=== PATIENT | male | born 1960 | race Caucasian/White ===

== ENCOUNTER 2023-03-13 06:52 | Inpatient (IN) | payer MEDICAID, OTHER ==
[~2023-03-13] VITALS: Ht 188 cm; Wt 115.0 kg
[2023-03-13] MEDS ORDERED: ALBUTEROL SULF 2.5 MG/0.5ML(0.5%) NEB SOLN ONE (07:00)
[2023-03-13] MEDS ORDERED: methylPREDNISolone SOD SUCC 125 MG/2 ML VL IV ONE (07:00)
[2023-03-13] MEDS ORDERED: ALBUTEROL SULF 2.5 MG/0.5ML(0.5%) NEB SOLN HHN ONE (07:00)
[2023-03-13] MEDS ORDERED: IPRATROPIUM BROM 0.5 MG/2.5ML INH SOL ONE (07:00)
[2023-03-13] MEDS ORDERED: IPRATROPIUM BROM 0.5 MG/2.5ML INH SOL HHN ONE (07:00)
[2023-03-13 07:22] LABS: Hematocrit 47.8 % (41.0-53.0); Hemoglobin 15.4 g/dL (13.5-17.5); Mean Corpuscular Hemoglobin 29.2 pg (28.0-32.0); Mean Corpuscular Hgb Conc. 32.2 g/dL (32.0-36.0); Mean Corpuscular Volume 90.8 fL (80.0-100.0); Red Blood Cells 5.27 10^6/uL (4.5-5.90); Red Cell Distribution Width 14.9 % (11.8-14.3); White Blood Cell 18.8 10^3/uL (4.4-10.8)
[2023-03-13 07:24] LABS: Basophils % (manual) 0 (0.0-2.0); Blast Cells 0; Eosinophils % (manual) 0 (0-7); Metamyelocytes % 0; Myelocytes % 0; Promyelocytes % 0; Reactive Lymphocytes 0
[2023-03-13] MEDS ORDERED: NALOXONE HCL 1MG/ML 2ML SYRINGE IV ONE (07:30)
[2023-03-13 07:32] LABS: Chloride 104 mmol/L (98-107); Potassium 4.9 mmol/L (3.5-5.1); Sodium 135 mmol/L (136-145)
[2023-03-13 07:33] LABS: Anion Gap 12 (5-15); Calcium 8.8 mg/dL (8.5-10.1); Carbon Dioxide 19 mmol/L (20-30)
[2023-03-13 07:38] LABS: Blood Urea Nitrogen 25 mg/dL (9-23); Glucose 252 mg/dL (74-106)
[2023-03-13 07:40] VITALS: PULSE 114; RESP 26; O2SAT 91
[2023-03-13] MEDS ORDERED: cefTRIAXone 1GM/50ML D5W 50 ML IV ONE ×2 (07:45→08:00)
[2023-03-13 07:53] LABS: Lactic Acid w/Reflex 4.2 mmol/L (0.4-2.0)
[2023-03-13] MEDS ORDERED: SODIUM CHLORIDE 0.9% 1,000 ML IV SCH (10:00)
[2023-03-13] MEDS ORDERED: VANCOMYCIN PER PHARMACY 0 MG IV SCH (10:00)
[2023-03-13] MEDS ORDERED: DEXTROSE (50%) 50ML SYRG IV PRN (10:00)
[2023-03-13] MEDS ORDERED: ONDANSETRON HCL 4 MG/2 ML VIAL IV PRN (10:00)
[2023-03-13 10:03] LABS: Urine Epithelial Cast None Seen /hpf (<5)
[2023-03-13 10:10] LABS: Urine Bacteria FEW /hpf (None Seen); Urine Blood 3+ /uL (Negative); Urine Clarity HAZY (Clear); Urine Color Yellow (Yellow); Urine Hyaline Cast FEW /lpf (0 - 2); Urine Mucus FEW (None Seen); Urine Protein, UAD 2+ (Negative); Urine Specific Gravity 1.015 (1.001-1.035); Urine Urobilinogen Normal (Negative); Urine WBC 8 /hpf (0 - 3); Urine pH 5.5 (5.0-8.0)
[2023-03-13 10:11] LABS: Base Excess -5.3 mmol/L (-2.0-2.0)
[2023-03-13] MEDS ORDERED: VANCOMYCIN 1GM/200ML 200 ML IV ONE ×2 (10:30→12:00)
[2023-03-13] MEDS ORDERED: NALOXONE HCL 1MG/ML 2ML SYRINGE IV PRN (10:30)
[2023-03-13 10:31] LABS: Amphetamine Screen, Urine Pos (NEGATIVE); Barbiturate Scree,Urine Neg (NEGATIVE); Benzodiazephine Screen, Urine Neg (NEGATIVE); Cocaine Screen, Urine Pos (NEGATIVE); Opiate Scree,Urine Neg (NEGATIVE); Phencyclidine Screen, Urine Neg (NEGATIVE)
[2023-03-13 10:32] LABS: Cannabinoid Screen, Urine Neg (NEGATIVE)
[2023-03-13] MEDS: ENOXAPARIN SOD 40 MG/0.4 ML SYRINGE SC SCH (10:35)
[2023-03-13] MEDS: SODIUM CHLORIDE 0.9% 1,000 ML IV SCH (10:36)
[2023-03-13 11:39] LABS: Creatinine, Urine 137.75 mg/dL (30.0-125.0)
[2023-03-13] MEDS: ACCU-CHEK COMFORT CURVE STRIP VI SCH ×2 (12:17→18:07)
[2023-03-13] MEDS: InsuLIN REG 1unit/0.01ml Soln (100units/ml) SC SCH ×2 (12:21→18:08)
[2023-03-13] MEDS: SODIUM CHLORIDE IV SCH (12:53)
[2023-03-13] MEDS: CEFEPIME 2 GM/50 ML IV SCH (12:53)
[2023-03-13 13:31] LABS: Band Neutrophils % (manual) 2; Lymphocytes % (manual) 8 (10.0-50.0); Monocytes % (manual) 6 (0-12); Platelet Estimate Adequate
[2023-03-13] MEDS ORDERED: CEFEPIME 2 GM/50 ML IV SCH (14:00)
[2023-03-13] MEDS ORDERED: SODIUM CHLORIDE IV SCH (14:00)
[2023-03-13] MEDS ORDERED: SODIUM CHLORIDE 0.9% 1,000 ML IV ONE (18:45)
[2023-03-13 20:16] VITALS: PULSE 91; RESP 12; O2SAT 95
[2023-03-14] MEDS: ACCU-CHEK COMFORT CURVE STRIP VI SCH ×4 (00:38→18:00)
[2023-03-14] MEDS: InsuLIN REG 1unit/0.01ml Soln (100units/ml) SC SCH ×4 (00:38→17:59)
[2023-03-14] MEDS: CEFEPIME 2 GM/50 ML IV SCH ×2 (01:00→12:12)
[2023-03-14] MEDS: SODIUM CHLORIDE IV SCH ×2 (01:00→12:12)
[2023-03-14 06:53] LABS: Carbon Dioxide 22 mmol/L (20-30); Chloride 106 mmol/L (98-107); Potassium 4.7 mmol/L (3.5-5.1); Sodium 136 mmol/L (136-145)
[2023-03-14 06:54] LABS: Anion Gap 8 (5-15)
[2023-03-14 06:55] LABS: Calcium 8.9 mg/dL (8.5-10.1)
[2023-03-14 07:00] LABS: BUN/Creatinine Ratio 16.1 (10.0-20.0); Blood Urea Nitrogen 27 mg/dL (9-23); LDL Cholesterol 95 mg/dL (< 100); Triglycerides 88 mg/dL (< 150)
[2023-03-14 07:02] LABS: Cholesterol 149 mg/dL (< 200); HDL Cholesterol 45 mg/dL (40-59)
[2023-03-14 07:07] LABS: Glucose 123 mg/dL (74-106)
[2023-03-14] MEDS: SODIUM CHLORIDE 0.9% 1,000 ML IV SCH ×2 (07:07→13:12)
[2023-03-14 07:27] LABS: Magnesium 2.3 mg/dL (1.6-2.6)
[2023-03-14 07:54] VITALS: PULSE 86; RESP 13; O2SAT 94
[2023-03-14 10:08] VITALS: BP 129/61; PULSE 92; RESP 20; TEMP 98; O2SAT 99
[2023-03-14] MEDS: ENOXAPARIN SOD 40 MG/0.4 ML SYRINGE SC SCH (10:30)
[2023-03-14 11:03] VITALS: BP 129/61; PULSE 92; RESP 20; TEMP 98; O2SAT 99
[2023-03-14] MEDS: VANCOMYCIN 1GM/200ML 200 ML IV SCH (12:53)
[2023-03-14 13:00] VITALS: BP 134/70; PULSE 85; RESP 20; TEMP 98; O2SAT 100
[2023-03-14 17:00] VITALS: BP 125/77; PULSE 88; RESP 18; TEMP 98.6; O2SAT 98
[2023-03-14 20:00] VITALS: BP 135/69; PULSE 101; PULSE 98; RESP 19; TEMP 98; O2SAT 96; O2SAT 99
[2023-03-15] VITALS (7 sets, daily range): BP systolic 106–145; BP diastolic 58–78; PULSE 79–95; RESP 18–20; TEMP 98–98.6; O2SAT 90–99
[2023-03-15] MEDS: ACCU-CHEK COMFORT CURVE STRIP VI SCH ×5 (00:14→23:12)
[2023-03-15] MEDS: SODIUM CHLORIDE IV SCH ×2 (00:14→13:01)
[2023-03-15] MEDS: CEFEPIME 2 GM/50 ML IV SCH ×2 (00:14→13:01)
[2023-03-15] MEDS: VANCOMYCIN 1GM/200ML 200 ML IV SCH ×2 (04:12→18:47)
[2023-03-15] MEDS: SODIUM CHLORIDE 0.9% 1,000 ML IV SCH ×2 (05:12→20:21)
[2023-03-15] MEDS: InsuLIN REG 1unit/0.01ml Soln (100units/ml) SC SCH ×5 (06:00→23:12)
[2023-03-15 06:58] LABS: Basophils # (auto) 0.1 10 ^3/uL (0-0.2); Basophils % (auto) 0.3 % (0.0-2.0); Eosinophils # (auto) 0 10 ^3/uL (0-0.8); Eosinophils % (auto) 0.1 % (0.0-7.0); Hematocrit 42.6 % (41.0-53.0); Hemoglobin 13.9 g/dL (13.5-17.5); Lymphocytes # (auto) 2.2 10 ^3/uL (0.4-5.4); Mean Corpuscular Hemoglobin 29.5 pg (28.0-32.0); Mean Corpuscular Hgb Conc. 32.6 g/dL (32.0-36.0); Mean Corpuscular Volume 90.7 fL (80.0-100.0); Monocytes # (auto) 2.3 10 ^3/uL (0-1.3); Monocytes % (auto) 12.4 % (0.0-12.0); Neutrophils % (auto) 75.2 % (37.0-80.0); Red Cell Distribution Width 14.8 % (11.8-14.3); White Blood Cell 18.7 10^3/uL (4.4-10.8)
[2023-03-15 07:36] LABS: Alanine Aminotransferase 106 U/L (7-40); Albumin 3.7 g/dL (3.2-4.8); Alkaline Phosphatase 66 U/L (46-116); Anion Gap 6 (5-15); Aspartate Aminotransferase 334 U/L (13-40); BUN/Creatinine Ratio 23.6 (10.0-20.0); Blood Urea Nitrogen 30 mg/dL (9-23); Calcium 8.9 mg/dL (8.5-10.1); Carbon Dioxide 25 mmol/L (20-30); Chloride 106 mmol/L (98-107); Glucose 120 mg/dL (74-106); Potassium 4.4 mmol/L (3.5-5.1); Sodium 137 mmol/L (136-145)
[2023-03-15 07:38] LABS: Bilirubin, Total 1.3 mg/dL (0.2-1.0); Total Protein 6.2 g/dL (5.7-8.2)
[2023-03-15 07:41] LABS: Erythrocyte Sedimentation Rate 43 mm/hr (0-20)
[2023-03-15] MEDS: ENOXAPARIN SOD 40 MG/0.4 ML SYRINGE SC SCH (09:23)
[2023-03-15] MEDS ORDERED: LORazepam 2MG/ML-1ML VIAL IV ONE (13:30)
[2023-03-16] MEDS: SODIUM CHLORIDE IV SCH ×2 (00:49→13:10)
[2023-03-16] MEDS: CEFEPIME 2 GM/50 ML IV SCH ×2 (00:49→13:10)
[2023-03-16 03:19] LABS: Basophils # (auto) 0.1 10 ^3/uL (0-0.2); Basophils % (auto) 0.7 % (0.0-2.0); Eosinophils # (auto) 0.1 10 ^3/uL (0-0.8); Eosinophils % (auto) 0.9 % (0.0-7.0); Hemoglobin 14.4 g/dL (13.5-17.5); Lymphocytes # (auto) 2.2 10 ^3/uL (0.4-5.4); Lymphocytes % (auto) 14.7 % (10.0-50.0); Mean Corpuscular Hemoglobin 29.3 pg (28.0-32.0); Mean Corpuscular Hgb Conc. 32.6 g/dL (32.0-36.0); Mean Corpuscular Volume 89.7 fL (80.0-100.0); Monocytes # (auto) 1.8 10 ^3/uL (0-1.3); Monocytes % (auto) 11.6 % (0.0-12.0); Neutrophils % (auto) 72.1 % (37.0-80.0); Red Blood Cells 4.91 10^6/uL (4.5-5.90); Red Cell Distribution Width 14.8 % (11.8-14.3); White Blood Cell 15.3 10^3/uL (4.4-10.8)
[2023-03-16 03:31] LABS: Alanine Aminotransferase 110 U/L (7-40); Albumin 3.7 g/dL (3.2-4.8); Alkaline Phosphatase 65 U/L (46-116); Anion Gap 7 (5-15); Aspartate Aminotransferase 272 U/L (13-40); BUN/Creatinine Ratio 22.9 (10.0-20.0); Bilirubin, Total 1.6 mg/dL (0.2-1.0); Blood Urea Nitrogen 25 mg/dL (9-23); Calcium 8.7 mg/dL (8.7-10.4); Carbon Dioxide 24 mmol/L (20-30); Chloride 107 mmol/L (98-107); Glucose 152 mg/dL (74-106); Potassium 4.2 mmol/L (3.5-5.1); Sodium 138 mmol/L (136-145); Total Protein 6.4 g/dL (5.7-8.2)
[2023-03-16 05:00] VITALS: BP 145/84; PULSE 87; RESP 19; TEMP 98.7; O2SAT 94
[2023-03-16] MEDS: ACCU-CHEK COMFORT CURVE STRIP VI SCH ×2 (05:15→11:22)
[2023-03-16 05:25] LABS: Erythrocyte Sedimentation Rate 60 mm/hr (0-20)
[2023-03-16] MEDS: InsuLIN REG 1unit/0.01ml Soln (100units/ml) SC SCH ×2 (06:35→11:22)
[2023-03-16 08:00] VITALS: PULSE 102; RESP 19
[2023-03-16] MEDS ORDERED: VANCOMYCIN 1GM/200ML 200 ML IV SCH ×2 (08:45→10:00)
[2023-03-16 09:00] VITALS: BP 149/83; PULSE 83; RESP 21; TEMP 98.8; O2SAT 96
[2023-03-16] MEDS: ENOXAPARIN SOD 40 MG/0.4 ML SYRINGE SC SCH (09:29)
[2023-03-16 12:00] VITALS: BP 126/52; PULSE 97; RESP 18; TEMP 98.2; O2SAT 91
[2023-03-16] MEDS: SODIUM CHLORIDE 0.9% 1,000 ML IV SCH (12:08)
[2023-03-16] MEDS ORDERED: ALBUTEROL SULF 2.5 MG/0.5ML(0.5%) NEB SOLN NEB PRN (15:45)
[2023-03-16 16:00] VITALS: BP 139/62; PULSE 97; RESP 18; TEMP 97.9; O2SAT 92
[2023-03-16 16:05] VITALS: BP 126/52; PULSE 97; RESP 20; TEMP 98.2; O2SAT 98
[2023-03-16 16:35] LABS: Base Excess -0.7 mmol/L (-2.0-2.0)
[2023-03-16] MEDS ORDERED: ALBUTEROL SULF 2.5 MG/0.5ML(0.5%) NEB SOLN NEB SCH (18:00)
[2023-03-16] MEDS ORDERED: IPRATROPIUM BROM 0.5 MG/2.5ML INH SOL NEB SCH (18:00)
== END 2023-03-16 17:10 | disposition left against medical advice (07) | DRG 720 ==
LOC: ER 06:52 → EDBD 06:52 → TELE 09:56 → TELE-WESTW 03-14 09:40
PROVIDERS: ADMIT Nurse Practitioner Family; ATTEND Internal Medicine
DX: A41.9 Sepsis, unspecified organism (principal); J96.01 Acute respiratory failure with hypoxia; I21.A1 Myocardial infarction type 2; G93.41 Metabolic encephalopathy; E87.21 Acute metabolic acidosis; N17.9 Acute kidney failure, unspecified; E66.9 Obesity, unspecified; F15.10 Other stimulant abuse, uncomplicated; J98.11 Atelectasis; T50.911A Poisoning by multiple unspecified drugs, medicaments and biological substances, accidental (unintentional), initial encounter; Y92.89 Other specified places as the place of occurrence of the external cause; I50.9 Heart failure, unspecified; N18.9 Chronic kidney disease, unspecified; N39.0 Urinary tract infection, site not specified; R73.03 Prediabetes; Z53.29 Procedure and treatment not carried out because of patient's decision for other reasons; S70.01XA Contusion of right hip, initial encounter; R73.9 Hyperglycemia, unspecified; F19.129 Other psychoactive substance abuse with intoxication, unspecified; Z68.32 Body mass index [BMI] 32.0-32.9, adult
CPT/HCPCS: 36415; 36600; 70450; 71045; 73700; 73721; 80048; 80053; 80061; 80202; 80307; 80320; 81001; 82550; 82553; 82570; 82607; 82805; 82962; 83036; 83605; 83735; 83880; 84300; 84443; 84484; 85007; 85025; 85027; 85652; 86592; 86850; 86900; 86901; 87040; 87086; 93005; 93306; 93971; 94640; 99291; G0378; J0692; J1815